=== PATIENT | female | born 1980 ===

== ENCOUNTER 2019-09-22 10:54 | Emergency (ER) | payer MEDICAID ==
[~2019-09-22] VITALS: Ht 157.5 cm; Wt 91.0 kg
--- NOTE | 2019-09-22 11:15 | NUR ---
THIS IS A 38 YO F W/ C/O LT LLQ PAIN SINCE FRIDAY. PT REPORTS HX OF 8 OVARIAN CYSTS. PT BELIEVES CYST HAS RUPTURED. DENIES N/V. PT RESP EVEN AND UNLABORED. NADN. PT RESTING ON [employer] W/ CALL LIGHT IN REACH AND SIDE RAILS UPX2. DENIES FURTHER NEEDS AT THIS TIME.
[2019-09-22] MEDS ORDERED: ONDANSETRON 2MG/ML, 2ML IVPush ONE (11:30)
[2019-09-22] MEDS ORDERED: SODIUM CHLORIDE FLUSH 10ML SYR IVF ONE (11:30)
[2019-09-22] MEDS ORDERED: MORPHINE SULFATE 4 MG/ML, 1ML IVPush PRN (11:30)
[2019-09-22] MEDS ORDERED: MORPHINE SULFATE 4 MG/ML, 1ML ONE (11:32)
[2019-09-22] MEDS ORDERED: ONDANSETRON 2MG/ML, 2ML ONE (11:32)
--- NOTE | 2019-09-22 11:35 | NUR ---
PIV STARTED, LABS DRAWN.
--- NOTE | 2019-09-22 11:38 | NUR ---
PT AMBULATED TO THE BR W/ A STEADY GAIT. PROVIDED URINE CUP FOR SAMPLE.
[2019-09-22 11:40] LABS: BASOPHILS # (AUTO) 0.05 x10^3/uL (0-0.1); BASOPHILS % (AUTO) 1 % (0-1); EOSINOPHILS # (AUTO) 0.09 x10^3/uL (0-0.4); EOSINOPHILS % (AUTO) 1 % (1-7); LYMPHOCYTES # (AUTO) 2.02 x10^3/uL (1-3.4); LYMPHOCYTES % (AUTO) 23 % (22-44); MD NO; MEAN CORPUSCULAR HEMOGLOBIN 33.7 pg (27.0-34.8); MEAN CORPUSCULAR HGB CONC 34.3 g/dL (32.4-35.8); MEAN CORPUSCULAR VOLUME 98.3 fL (80-100); MEAN PLATELET VOLUME 7.5 fL (7.4-10.4); MONOCYTES # (AUTO) 0.58 x10^3/uL (0.2-0.8); MONOCYTES % (AUTO) 7 % (2-9); NEUTROPHILS # (AUTO) 5.91 x10^3/uL (1.8-6.8); NEUTROPHILS % (AUTO) 68 % (42-75); PLATELET COUNT 306 x10^3/uL (130-400); RED BLOOD COUNT 4.19 x10^6/uL (3.82-5.3); RED CELL DISTRIBUTION WIDTH 13.6 % (9.6-15.2)
--- NOTE | 2019-09-22 11:48 | NUR ---
URINE COLLECTED AND SENT TO LAB.
[2019-09-22 11:49] LABS: ALBUMIN 3.4 g/dL (3.4-5.0); ANION GAP 7 mmol/L (5-15); CALCIUM 8.8 mg/dL (8.5-10.1); CHLORIDE 105 mmol/L (98-107); CREATININE 0.77 mg/dL (0.55-1.02)
[2019-09-22 11:56] LABS: MICROSCOPIC AUTO
--- NOTE | 2019-09-22 12:00 | NUR ---
PT TO US.
[2019-09-22 12:24] VITALS: BP 138/77
[2019-09-22] MEDS ORDERED: OMNIPAQUE 350 MG/ML, 100ML BOTTLE ONE (12:55)
== END 2019-09-22 13:39 | disposition home or self-care (01) ==
LOC: ED 12:54
DX: R10.31 Right lower quadrant pain (principal); R10.9 Unspecified abdominal pain; Z98.51 Tubal ligation status
CPT/HCPCS: 36415; 74177; 76830; 80048; 81001; 82040; 84703; 85025; 87086; 96374; 96375; 99285; J2270; J2405; Q9967